=== PATIENT | male | born 1985 | race Caucasian/White ===

== ENCOUNTER 2024-12-13 15:36 | Emergency (ER) | payer MEDICARE, OTHER ==
[~2024-12-13] VITALS: Ht 175.3 cm; Wt 81.6 kg
[2024-12-13 15:41] VITALS: BP 119/81; TEMP 98
[2024-12-13] MEDS ORDERED: LIDOCAINE 1%-EPI 1:100,000 20 ML VIAL ONE (15:48)
[2024-12-13 16:42] VITALS: O2SAT 97
== END 2024-12-13 16:42 | disposition home or self-care (01) ==
LOC: ER 15:55
DX: S00.452A Superficial foreign body of left ear, initial encounter (principal); F17.200 Nicotine dependence, unspecified, uncomplicated; W45.8XXA Other foreign body or object entering through skin, initial encounter; Y93.89 Activity, other specified; Y92.89 Other specified places as the place of occurrence of the external cause; Y99.8 Other external cause status
CPT/HCPCS: 99285; 10120; J3490

== ENCOUNTER 2025-01-05 13:40 | Emergency (ER) | payer OTHER, MEDICARE ==
[~2025-01-05] VITALS: Ht 175.3 cm; Wt 81.6 kg
[2025-01-05 13:58] VITALS: BP 123/76; TEMP 98.3; O2SAT 99
== END 2025-01-05 14:19 | disposition home or self-care (01) ==
LOC: ER 14:18
DX: S00.451A Superficial foreign body of right ear, initial encounter (principal); F17.200 Nicotine dependence, unspecified, uncomplicated; W45.8XXA Other foreign body or object entering through skin, initial encounter; Y93.89 Activity, other specified; Y92.89 Other specified places as the place of occurrence of the external cause; Y99.8 Other external cause status